=== PATIENT | male | born 1940 | race Caucasian/White ===

== ENCOUNTER → 2016-12-05 | Day surgery (SDC) | payer OTHER ==
[~2016-12-05] MED LIST: B-COTAB41 PO; BUPIVACAINE HCL PF 0.75% 30 ML VIAL ONE; CENTTAB8 PO; FISH120014 PO; LACTATED RINGER'S 1000 ML INJ 1,000 ML ONE; LIDOCAINE 1.5%/EPINEPHrine 1:200,000 PF SOLN 30 ML AMP ONE; MIDAZOLAM HCL 5 MG/ML VIAL (1 ML) ONE; ONDANSETRON HCL 4 MG/2 ML VIAL IV PUSH ONE; PROPOFOL 200 MG/20 ML AMP IV ONE; TAMS0.4C67 PO; VITA400C70 PO; VITA500T10 PO; ceFAZolin 2 GM PREMIX 50 ML ONE
--- NOTE | 2016-12-07 18:29 | MP ---
cc: DARON DICKEY M.D. DATE OF SURGERY 12/05/2016 PREOPERATIVE DIAGNOSIS Left shoulder rotator cuff tendon tear. Left shoulder impingement syndrome. Left shoulder labral SLAP tear. POSTOPERATIVE DIAGNOSIS Left shoulder rotator cuff tendon tear. Left shoulder impingement syndrome. Left shoulder labral SLAP tear. PROCEDURE Left shoulder arthroscopic rotator cuff repair. Left shoulder arthroscopic subacromial decompression. Left shoulder arthroscopic extensive debridement of SLAP labral tear. SURGEON Dr. Daron Dickey MANGLE TENDER MARCELLE Pastrana ANESTHESIA General with an interscalene block. REVIEW OF SYSTEMS Less than 10 cc. COMPLICATIONS None. IMPLANTS USED Arthrex. JUSTIFICATION FOR PROCEDURE The patient is a 76-year male with history of severe increasing pain, weakness of his left shoulder. He has been followed by the undersigned at [facility] with failure of conservative treatment. Clinical exam as well as MRI confirmed the above-named findings. The patient was counseled as to the risks, benefits, alternatives to the above named surgical procedure. He did wish to proceed with surgery. PROCEDURE IN DETAIL A written consent was obtained. The patient identified by name. The patient taken to the operating room where general anesthesia was administered as well as 2 grams of IV Ancef. He did receive preoperative interscalene block. The patient was carefully turned to a right lateral decubitus position, a lateral arm roll was placed. All bony prominences and pressure points were well padded. The neck was carefully monitored and kept neutral. The arthroscopic arm moreira was gently applied to the left upper extremity with 10 pounds of traction placed. The left shoulder prepped and draped using isopropyl alcohol, Hibiclens solution and DuraPrep solution. After a time-out was performed standard posterior and anterior glenohumeral arthroscope portal was established. The glenohumeral joint revealed evidence of labral tearing along the anterior, superior and posterior aspects. An arthroscopic shaver was inserted through the anterior portal and extensive debridement of the labrum was performed from the 3 o'clock position to the 12 o'clock position back down to the 9 o'clock position. There is evidence of massive rotator cuff tendon tear involving the entire supraspinatus and infraspinatus tendon with severe retraction. Attention was turned to the subacromial space where there was evidence of impingement with bursitis. An arthroscopic shaver was introduced from a lateral portal. A subacromial decompression was performed. The shaver was used to perform extensive bursectomy. An arthroscopic bur was used to perform an acromioplasty and cautery device was used to release coracoacromial ligament. The posterior portion of the tear was more mobile than the anterior portion. I was able to free up the anterior portion and initially I performed an Arthrex convergence suture with #2 FiberWire suture and arthroscopic sliding knots. This allowed for increased mobilization of the anterior leaflet. Subsequently an Arthrex 4.75 mm Bio SwiveLock anchor was inserted along a medial portion of the greater tuberosity. The Arthrex scorpion device was used to shuttle #2 fiber tape sutures through the mid and posterior portion of the tendon. A #2 fiber link suture was also placed. These sutures were then placed through the eyelet of an Arthrex 4.75 mm Bio SwiveLock anchor and the anchor was then inserted into the greater tuberosity along the lateral row for surgical repair. There is good stability and fixation after insertion. At this point an Arthrex FiberLink suture was placed along the anterior portion of the sutures. The FiberLink suture as well as the sutures from the convergence knot were placed through the eyelet of a second Arthrex 4.75 mm Bio SwiveLock anchor and that anchor was then inserted in the greater tuberosity for surgical repair. After repair the tendon was probed and had a good stability and fixation. The arthroscopic portal was closed with 3-0 Prolene suture. Sterile dressing applied. The patient placed in sling and swath immobilizer. He tolerated the procedure well with no intraoperative complications noted. MARCELLE Pastrana, was present during the entire procedure to include patient positioning, the procedure itself. The medical necessity of a marketing administrative assistant was indicated in this case due to the complexity of the procedure. He assisted with manipulation of arm, also manipulation of camera. He assisted with shuttling of sutures and also implantation of suture anchors for purposes of rotator cuff tendon repair. MD YAHIR Cagle/ALBA /11:16 AM /6:13 PM
== END | disposition home or self-care (01) ==
LOC: ESDC 07:58
PROVIDERS: ATTEND Orthopaedic Surgery Sports Medicine
DX: M75.122 Complete rotator cuff tear or rupture of left shoulder, not specified as traumatic (principal); M75.42 Impingement syndrome of left shoulder; S43.432A Superior glenoid labrum lesion of left shoulder, initial encounter
CPT/HCPCS: 01630; 01991; 29823; 29826; 29827; 64417; C1713; J0690; J2250; J2405; J7120